=== PATIENT | male | born 1995 | race Caucasian/White ===

== ENCOUNTER 2017-07-15 02:44 | Emergency (ER) | payer BC ==
[~2017-07-15] VITALS: Ht 172.7 cm; Wt 77.1 kg
--- NOTE | ~2017-07-15 | EKG ---
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
--- NOTE | ~2017-07-15 | EKG ---
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[facility] : 1995 Requested By: Carmelita Manning Order Number: [id number] MD: Ez Angel Measurements Intervals [place] Rate: 109 P: 52 MS: 171 QRS: 40 QRSD: 99 T: 28 QT: 331 QTc: 446 Interpretive Statements Sinus tachycardia Atrial premature complex ST elev, probable normal early repol pattern No previous ECG available for comparison Electronically Signed On 07-15-2017 16:09:13 TRAVEL PT by Ez Angel [email or web address] <ELECTRONICALLY SIGNED> By: Ez Angel MD 07/15/17 [id number] Ez Angel MD /HENNY
[2017-07-15 03:50] LABS: ABSOLUTE NEUTROPHILS 5.2 thou/uL (1.4-8.2); BASOPHILS 0.4 % (0.0-2.0); EOSINOPHILS 2.6 % (0.0-3.0); MCH 29.7 pg (26.0-34.0); MCHC 34.2 g/dL (28.0-37.0); MCV 86.9 fL (80.0-100.0); MONOCYTES 7.8 % (1.0-8.0); PLATELET COUNT 232 thou/uL (150-400); POLYS 47.2 % (36.0-66.0); RBC 5.41 mil/uL (4.50-6.00); RDW 13.7 % (10.5-14.5)
[2017-07-15 03:52] LABS: MANUAL DIFF NO
[2017-07-15 04:03] LABS: CALCIUM 9.2 mg/dL (8.5-10.1); POTASSIUM 3.1 mmol/L (3.5-5.1)
[2017-07-15 04:23] VITALS: BP 102/49
== END 2017-07-15 04:30 | disposition home or self-care (01) ==
LOC: ER 02:44
PROVIDERS: Emergency Medicine
DX: I47.1 Supraventricular tachycardia (principal); F12.10 Cannabis abuse, uncomplicated; F10.99 Alcohol use, unspecified with unspecified alcohol-induced disorder; Z88.8 Allergy status to other drugs, medicaments and biological substances

== ENCOUNTER 2017-09-16 18:54 | Emergency (ER) | payer BC, OTHER ==
[~2017-09-16] VITALS: Ht 172.7 cm; Wt 83.9 kg
--- NOTE | ~2017-09-16 | EKG ---
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 : 1995 Requested By: Gale Soto Order Number: [id number] MD: Stanley Noel Measurements Intervals [place] Rate: 98 P: 59 [place]: 142 QRS: 16 QRSD: 94 T: 21 QT: 338 QTc: 432 Interpretive Statements Sinus rhythm RSR' in V1 or V2, right VCD ST elev, probable normal early repol pattern Compared to ECG 07/15/2017 03:59:26 Atrial premature complex(es) no longer present Electronically Signed On 09-17-2017 8:23:51 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
== END 2017-09-16 20:37 | disposition home or self-care (01) ==
LOC: ER 18:54
DX: F41.0 Panic disorder [episodic paroxysmal anxiety] (principal); F17.210 Nicotine dependence, cigarettes, uncomplicated

== ENCOUNTER 2017-11-23 22:17 | Emergency (ER) | payer BC, OTHER ==
[~2017-11-23] VITALS: Ht 172.7 cm; Wt 83.9 kg
--- NOTE | ~2017-11-23 | EKG ---
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1995 Requested By: Laurence Tomas Order Number: [id number] MD: Ez Angel Measurements Intervals [place] Rate: 110 P: 74 IA: 125 QRS: 25 QRSD: 96 T: 32 QT: 324 QTc: 439 Interpretive Statements Sinus tachycardia ST elev, probable normal early repol pattern Compared to ECG 09/16/2017 19:57:31 Right ventricular hypertrophy now present Sinus rhythm no longer present ST (T wave) deviation still present Electronically Signed On 11-24-2017 12:11:52 CDT by Ez Angel [email or web address] <ELECTRONICALLY SIGNED> By: Ez Angel MD 11/24/17 121 32 32 Ez Angel MD /EPI
[2017-11-23 22:58] LABS: ABSOLUTE NEUTROPHILS 4.8 thou/uL (1.4-8.2); BASOPHILS 0.3 % (0.0-2.0); EOSINOPHILS 1.2 % (0.0-3.0); HEMATOCRIT 49.8 % (42.0-52.0); HEMOGLOBIN 17.1 gm/dL (14.0-18.0); LYMPHOCYTES 30.4 % (24.0-44.0); MCH 30.2 pg (26.0-34.0); MCHC 34.4 g/dL (28.0-37.0); MCV 87.7 fL (80.0-100.0); MONOCYTES 7.8 % (1.0-8.0); PLATELET COUNT 203 thou/uL (150-400); POLYS 60.3 % (36.0-66.0); RBC 5.68 mil/uL (4.50-6.00); RDW 14.7 % (10.5-14.5)
[2017-11-23 23:11] LABS: CALCIUM 9.8 mg/dL (8.5-10.1); CREATININE 1.1 mg/dL (0.7-1.3); POTASSIUM 3.4 mmol/L (3.5-5.1)
[2017-11-23 23:13] LABS: AMP/METHAMP Negative (Negative); BARBITURATES Negative (Negative); BENZODIAZEPINES Negative (Negative); COCAINE Negative (Negative); METHADONE Negative (Negative); OPIATES Negative (Negative); PCP Negative (Negative)
[2017-11-24] MEDS ORDERED: XANAX 0.5 MG0.5 M1 PO (01:05)
[2017-11-24 01:21] VITALS: BP 118/76
== END 2017-11-24 01:20 | disposition home or self-care (01) ==
LOC: ER 22:17
PROVIDERS: Nurse Practitioner Family
DX: F41.0 Panic disorder [episodic paroxysmal anxiety] (principal); R00.0 Tachycardia, unspecified

== ENCOUNTER 2018-02-19 02:16 | Emergency (ER) | payer BC, OTHER ==
[~2018-02-19] VITALS: Ht 172.7 cm; Wt 83.9 kg
[~2018-02-19 02:16] MED LIST: XANAX 0.5 MG0.5 M1 PO
[2018-02-19] MEDS ORDERED: XANAX 0.5 MG0.5 MG (02:32)
[2018-02-19] MEDS ORDERED: SOLARCAINE COO127 GM TOP (02:36)
[2018-02-19] MEDS ORDERED: MORPHINE SULFAT15 M3 PO (02:36)
[2018-02-19 03:10] VITALS: BP 131/79
== END 2018-02-19 03:00 | disposition home or self-care (01) ==
LOC: ER 02:16
DX: S40.222A Blister (nonthermal) of left shoulder, initial encounter (principal); S40.221A Blister (nonthermal) of right shoulder, initial encounter; L55.0 Sunburn of first degree; F41.9 Anxiety disorder, unspecified; Z90.89 Acquired absence of other organs; Z87.891 Personal history of nicotine dependence; X32.XXXA Exposure to sunlight, initial encounter; Y93.89 Activity, other specified; Y92.89 Other specified places as the place of occurrence of the external cause; Y99.8 Other external cause status